=== PATIENT | male | born 1985 | race Caucasian/White ===

== ENCOUNTER → 2016-06-09 | Outpatient (CLI) | payer MEDICAID | LOC: FIMAGING 09:25 | PROVIDERS: ATTEND Internal Medicine | DX: G89.29 Other chronic pain (principal); M53.9 Dorsopathy, unspecified; M54.5 Low back pain; M21.70 Unequal limb length (acquired), unspecified site ==

== ENCOUNTER → 2016-07-02 | Outpatient (CLI) | payer MEDICAID | LOC: FIMAGING 15:24 | PROVIDERS: ATTEND Internal Medicine | DX: M51.37 Other intervertebral disc degeneration, lumbosacral region (principal); M51.87 Other intervertebral disc disorders, lumbosacral region ==